=== PATIENT | female | born 1985 ===

== ENCOUNTER 2025-01-28 14:06 | Emergency (ER) | payer SELFPAY ==
[2025-01-28] MEDS ORDERED: Ondansetron PF 4 MG/2 ML Vial ONE (16:29)
[2025-01-28 16:41] LABS: #Basophils 0.04 10x3/uL (0.0-0.2); #Eosinophils 0.13 10x3/uL (0.0-0.7); #Monocytes 0.73 10x3/uL (0.11-0.59); #Neutrophils 7.01 10x3/uL (1.40-6.50); %Basophils 0.4 % (0.0-1.0); %Eosinophils 1.3 % (0.0-10.0); %Lymphocytes 22.4 % (21.0-51.0); %Monocytes 7.1 % (0.0-10.0); %Neutrophils 68.6 % (42.0-75.0); Hematocrit 45.3 % (36.0-47.0); Hemoglobin 14.6 g/dL (12.0-16.0); Mean Corpuscular Hemoglobin 29.0 pg (27.0-31.0); Mean Corpuscular Volume 89.9 fL (78.0-98.0); Platelet Count 229 10x3/uL (130-400); Red Blood Cell (RBC) Count 5.04 mill/uL (4.20-5.40); White Blood Cell (WBC) Count 10.22 10x3/uL (4.8-10.8)
[2025-01-28 16:57] LABS: ALT (SGPT) 85 U/L (Less than 34); AST (SGOT) 108 U/L (11-34); Albumin 4.0 g/dL (3.1-4.5); Alkaline Phosphatase 88 U/L (40-110); Anion Gap 16 mmol/L (10-20); BUN (Urea Nitrogen) 11 mg/dL (7.0-18.7); Bilirubin, Total 0.4 mg/dL (0.3-1.2); Calc. Creatinine Clearance 0 mL/min (70-130); Calcium 9.3 mg/dL (7.8-10.44); Carbon Dioxide 22 mmol/L (22-29); Chloride 108 mmol/L (98-107); Globulin 3.4 g/dL (2.4-3.5); Glucose 82 mg/dL (70-105); Lipase 40 U/L (8-78); Potassium 4.2 mmol/L (3.5-5.1); Sodium 142 mmol/L (136-145)
[2025-01-28 18:26] LABS: CAUTI Indications for Culture Acute Hematuria; Glucose, Urine (Dipstick) Normal (Negative); Leukocyte Negative Leu/uL (Negative); Protein, Urine (Dipstick) 20 mg/dL (Neg-Trace); RBC/HPF 0-3 HPF (0-3); Specific Gravity, Urine 1.027 (1.002-1.036); WBC/HPF None Seen HPF (0-3)
[2025-01-28 18:41] LABS: Bacteria/HPF 1+ HPF (None Seen)
[2025-01-28 18:42] LABS: Urine Culture Reflex No No
== END 2025-01-28 20:49 ==
LOC: ERS 14:06
DX: K80.20 Calculus of gallbladder without cholecystitis without obstruction (principal)
CPT/HCPCS: 36415; 76705; 80053; 81001; 83690; 85025; 96372; 96374; 96375; J2270; J2405